=== PATIENT | male | born 1960 | race Caucasian/White ===

== ENCOUNTER 2019-06-07 05:55 | Outpatient (CLI) | payer OTHER ==
[~2019-06-07] VITALS: Ht 177 cm; Wt 84.5 kg
[2019-06-07] MEDS ORDERED: ATOR40TA PO (14:44)
[2019-06-07] MEDS ORDERED: LISI-552 PO (14:44)
[2019-06-07] MEDS ORDERED: OMEP20CA13 PO (14:44)
== END 2019-06-07 15:03 | disposition home or self-care (01) ==
LOC: PREOP 05:55
PROVIDERS: ATTEND Surgery
DX: Z01.818 Encounter for other preprocedural examination (principal)

== ENCOUNTER 2019-08-04 09:04 | Outpatient (CLI) | payer OTHER ==
[~2019-08-04] VITALS: Ht 175 cm; Wt 87.1 kg
[~2019-08-04 09:04] MED LIST: ATOR40TA PO; LISI-552 PO; OMEP20CA13 PO
[2019-08-04 09:15] VITALS: BP 139/93
[2019-08-04 09:52] LABS: BASOPHILS % (AUTO) 0 % (0-10); EOSINOPHILS # (AUTO) 0.3 10^3/uL (0.0-0.3); EOSINOPHILS % (AUTO) 3 % (0-10); HEMATOCRIT 40 % (40-54); HEMOGLOBIN 14.2 G/DL (13.3-17.7); LYMPHOCYTES # (AUTO) 1.9 X 10^3 (1.0-4.0); LYMPHOCYTES % (AUTO) 25 % (12-44); MEAN CORPUSCULAR HEMOGLOBIN 28 PG (25-34); MEAN CORPUSCULAR HGB CONC 35 G/DL (32-36); MEAN CORPUSCULAR VOLUME 79 FL (80-99); MONOCYTES # (AUTO) 0.7 X 10^3 (0.0-1.0); MONOCYTES % (AUTO) 10 % (0-12); NEUTROPHILS # (AUTO) 4.8 X 10^3 (1.8-7.8); NEUTROPHILS % (AUTO) 62 % (42-75); PLATELET COUNT 171 10^3/uL (130-400); RED CELL DISTRIBUTION WIDTH 13.8 % (10.0-14.5); WHITE BLOOD COUNT 7.7 10^3/uL (4.3-11.0)
== END 2019-08-04 13:47 | disposition home or self-care (01) ==
LOC: PREOP 09:04
PROVIDERS: ATTEND Surgery
DX: Z01.812 Encounter for preprocedural laboratory examination (principal); D12.6 Benign neoplasm of colon, unspecified
CPT/HCPCS: 36415; 85025; 86850; 86900; 86901; 87081

== ENCOUNTER 2019-08-11 07:41 | Inpatient (IN) | payer OTHER ==
[~2019-08-11] VITALS: Ht 175 cm; Wt 87.1 kg
[2019-08-11] VITALS (10 sets, daily range): BP systolic 120–172; BP diastolic 73–104
[2019-08-11] MEDS ORDERED: BUP/EPI 0.5% 1:200,000 (SENSORCAINE) 30 ML VIAL ONE (08:15)
[2019-08-11] MEDS: LACTATED RINGERS 1,000 ML IV PRN ×2 (08:17→09:38)
[2019-08-11] MEDS ORDERED: metroNIDAZOLE 500MG/100ML IVPB 100 ML IV ONE (08:30)
[2019-08-11] MEDS ORDERED: ceFAZolin 2 GM/50 ML NS 50 ML IV ONE (08:30)
[2019-08-11] MEDS ORDERED: ONDANSETRON 4 MG/2 ML (SDV) Z0FRAN ONE (08:32)
[2019-08-11] MEDS ORDERED: LIDOCAINE PF 2% 5 ML (XYLOCAINE) VIAL ONE (08:32)
[2019-08-11] MEDS ORDERED: proPOfol 200 MG/20 ML (DIPRIVAN) VIAL IV ONE (08:32)
[2019-08-11] MEDS ORDERED: SEVOFLURANE (ULTANE) 15 ML INHAL SOLN ONE (08:32)
[2019-08-11] MEDS ORDERED: DEXAMETHASONE 10 MG/ML (DECADRON) 1 ML VIAL ONE (08:32)
[2019-08-11] MEDS ORDERED: ROCURONIUM 10 MG/ML 5 ML SYRINGE IV ONE (08:32)
[2019-08-11] MEDS ORDERED: fentaNYL INJECTION 250 MCG/5 ML AMP ONE (08:33)
[2019-08-11] MEDS ORDERED: MIDAZOLAM 2 MG/2 ML (VERSED) VIAL ONE (08:33)
[2019-08-11] MEDS ORDERED: BUPIVACAINE 0.5% 30 ML (SENSORCAINE) VIAL ONE (10:04)
[2019-08-11] MEDS ORDERED: NEOSTIGMINE 3 MG/3 ML VIAL ONE (10:12)
[2019-08-11] MEDS ORDERED: GLYCOPYRROLATE 0.2 MG/ML (ROBINUL) 2 ML VIAL ONE (10:12)
[2019-08-11] MEDS ORDERED: KETOROLAC 30 MG/ML VIAL ONE (10:13)
--- NOTE | 2019-08-11 10:24 | Progress Note-Post Operative ---
Post-Operative Progess Note Surgeon (s)/Cryogenics Repairer (s) Surgeon ALEKSANDR DORAN DO Cryogenics Repairer: Dr. Duncan Pre-Operative Diagnosis tubullovillous adenoma cecal area Post-Operative Diagnosis same Procedure & Operative Findings Date of Procedure 08/11/19 Procedure Performed/Findings lap hand assisted right colon resection Anesthesia Type gen Estimated Blood Loss Estimated blood loss (mL): min Specimens/Packing Specimens Removed right colon ALEKSANDR DORAN DO Aug 11, 2019 10:24
[2019-08-11] MEDS ORDERED: ONDANSETRON 4 MG/2 ML (SDV) Z0FRAN IVP PRN ×2 (10:30→11:00)
[2019-08-11] MEDS ORDERED: morphine INJ 10 MG/ML 1ML (SYR OR VIAL) IVP PRN (10:30)
[2019-08-11] MEDS ORDERED: morphine INJ 10 MG/ML 1ML (SYR OR VIAL) IVP ONE (11:00)
[2019-08-11] MEDS ORDERED: fentaNYL INJECTION 100 MCG/2 ML AMP IVP ONE (11:00)
[2019-08-11] MEDS ORDERED: LABETALOL HCL 20 MG/4 ML VIAL IV PRN (11:00)
[2019-08-11] MEDS ORDERED: morphine INJ 10 MG/ML 1ML (SYR OR VIAL) ONE (11:13)
[2019-08-11] MEDS: LACTATED RINGERS 1,000 ML IV SCH ×2 (12:13→15:30)
[2019-08-11] MEDS ORDERED: CATHETER FLUSH 10 ML SYR IV PRN (12:45)
[2019-08-11] MEDS ORDERED: morphine INJ 4 MG/ML 1 ML (VIAL/SYRINGE) IV PRN (12:45)
[2019-08-11] MEDS ORDERED: ceFAZolin INJECTION 2,000 MG in WATER (STERILE) FOR INJECTION 10 ML IV SCH (14:00)
[2019-08-11] MEDS: ceFAZolin 2 GM/50 ML NS 50 ML IV SCH ×2 (15:34→23:43)
[2019-08-12] VITALS: BP 116/77
[2019-08-12] MEDS: LACTATED RINGERS 1,000 ML IV SCH ×3 (00:52→18:10)
[2019-08-12 04:00] VITALS: BP 113/72
--- NOTE | 2019-08-12 04:48 | OPERATIVE REPORT ---
DATE OF SERVICE: 08/11/2019 PREOPERATIVE DIAGNOSIS: Tubulovillous adenoma of the cecum. POSTOPERATIVE DIAGNOSIS: Tubulovillous adenoma of the cecum. PROCEDURE: Laparoscopic hand-assisted right colon resection with cvbr-gb-[id number] anastomosis. SURGEON: Aleksandr Anders DO WAREHOUSE TRAFFIC SUPERVISOR: Dr. Duncan, assisted in retraction, dissection and closure. ANESTHESIA: General. ESTIMATED BLOOD LOSS: Minimal. COMPLICATIONS: None. INDICATIONS: The patient is a 59-year-old male with a large flat polyp in the cecum, unable to be removed endoscopically. He understands risks and benefits of procedure and wished to proceed with procedure. Consent was signed in the chart. DESCRIPTION OF PROCEDURE: The patient was taken to the operating suite, was prepped and draped in sterile fashion. Surgical pause was performed. Midline incision was made for a hand port. A 12 mm trocar was then placed in the suprapubic region and the subxiphoid region under direct visualization of laparoscope. The right colon was isolated. Using cautery, the colon was mobilized from the white line of Toldt freeing the cecum and right colon. Once adequately free, the colon was brought out through the midline incision and the distal portion of the ileum was then dissected around and KECIA blue stapler was then fired across and the colon was then dissected around distal to where the polyp was and a KECIA blue stapler was then fired across the colon. LigaSure was then used to divide the mesentery from the colon, removing the segment of small bowel and right colon. The small bowel and colon were then brought together and created a [id number] anastomosis. A crotch stitch was placed. The abdomen was then reinspected. No other pathology noted. The midline incision was then closed using 1-0 looped PDS. The abdomen was then insufflated again noting no other pathology and the abdomen was then desufflated. The trocars were removed. The skin was then closed using william. The area was then washed and dried. Sterile bandages were applied. The patient tolerated procedure well without any complications. He was taken to recovery room in stable condition. Job ID: [id number] DocumentID: [id number] Dictated Date: 08/11/2019 21:02:44 Senior Financial Accountant Date: 08/12/2019 04:46:58 Dictated By: ALEKSNADR ANDERS DO
[2019-08-12] MEDS: HYDROcodone/APAP 5 MG/325 MG (LORTAB) TAB PO PRN ×2 (05:06→20:12)
[2019-08-12 05:34] LABS: HEMOGLOBIN 11.4 G/DL (13.3-17.7); MEAN PLATELET VOLUME 9.1 FL (7.4-10.4); RED CELL DISTRIBUTION WIDTH 13.6 % (10.0-14.5); WHITE BLOOD COUNT 11.8 10^3/uL (4.3-11.0)
[2019-08-12 05:51] LABS: BUN/CREATININE RATIO 19; CALCIUM 8.1 MG/DL (8.5-10.1); CARBON DIOXIDE 20 MMOL/L (21-32); CHLORIDE 108 MMOL/L (98-107); CREATININE SERUM 0.75 MG/DL (0.60-1.30); GFR ESTIMATED > 60; GLUCOSE 127 MG/DL (70-105); MAGNESIUM 1.5 MG/DL (1.6-2.4); POTASSIUM 4.3 MMOL/L (3.6-5.0); SODIUM 138 MMOL/L (135-145)
--- NOTE | 2019-08-12 06:43 | Progress Note - Surgery ---
MARGARET DIOR,MED STUDENT 08/12/19 0643: Subjective Date Seen by a Provider: Aug 12, 2019 Time Seen by a Provider: 06:31 Subjective/Events-last exam Patient seen and examined. Patient says that he currently does not have any pain since his pain meds were started and that is pain before pain meds were started was 3/10. He says that he has been up and walking around and has been doing his IS but has not had any flatus or BM yet. He still has his pretty catheter in and was wondering when he can give it out. Review of Systems General: No Chills; Appetite HEENT: No Head Aches; Dysphasia; No Sore Throat Pulmonary: No Dyspnea, No Cough Cardiovascular: No: Chest Pain, Palpitations Gastrointestinal: No: Nausea, Vomiting, Abdominal Pain, Diarrhea Neurological: No: Weakness, Numbness Objective Exam Vital Signs Date Time Temp Pulse Resp B/P (MAP) Pulse Ox O2 Delivery O2 Flow Rate FiO2 08/12/19 04:00 36.6 73 18 113/72 (86) 97 Nasal Cannula 2.00 08/12/19 00:00 36.8 86 18 116/77 (90) 96 Room Air 08/11/19 21:00 Nasal Cannula 2.00 08/11/19 20:00 37.2 101 20 120/73 (89) 95 Room Air 08/11/19 16:00 36.7 90 20 133/83 (100) 95 Nasal Cannula 2.00 08/11/19 13:55 Nasal Cannula 3.00 08/11/19 11:45 36.5 77 20 144/87 (106) 93 Nasal Cannula 3.00 08/11/19 11:45 95 Nasal Cannula 3.00 08/11/19 11:45 36.5 77 20 144/87 93 Nasal Cannula 3.00 08/11/19 11:45 36.5 77 20 144/82 93 Nasal Cannula 3.00 08/11/19 11:45 OxyMask 3 08/11/19 11:45 36.5 20 149/89 (109) 94 Nasal Cannula 3 08/11/19 11:30 OxyMask 3 08/11/19 11:30 20 137/92 (107) 95 Nasal Cannula 3 08/11/19 11:20 20 151/90 (110) 94 Nasal Cannula 3 08/11/19 11:15 OxyMask 4 08/11/19 11:10 20 166/96 (119) 96 OxyMask 5 08/11/19 11:00 20 166/96 (119) 97 OxyMask 10 08/11/19 11:00 OxyMask 10 08/11/19 10:50 20 163/96 (118) 98 OxyMask 10 08/11/19 10:45 OxyMask 10 08/11/19 10:40 OxyMask 10 08/11/19 10:40 36.5 20 172/104 (126) 99 OxyMask 10 08/11/19 07:45 36.5 76 16 137/94 (108) 91 Room Air I & O 08/12/19 07:00 Intake Total 4550 ml Output Total 1860 ml Balance 2690 ml Capillary Refill : Less Than 3 Seconds General Appearance: No Apparent Distress, WD/WN HEENT: PERRL/EOMI Respiratory: Chest Non Tender, Lungs Clear, Normal Breath Sounds, No Accessory Muscle Use, No Respiratory Distress Cardiovascular: Regular Rate, Rhythm, No Edema, Normal Peripheral Pulses Gastrointestinal: non tender, soft, no organomegaly, no pulsatile mass Extremity: No Calf Tenderness, No Pedal Edema Neurologic/Psychiatric: Alert, Oriented x3, Normal Mood/Affect Skin: Normal Color, Warm/Dry Results Lab Laboratory Tests 08/12/19 04:55: White Blood Count 11.8H, Red Blood Count 4.07L, Hemoglobin 11.4L, Hematocrit 33L , Mean Corpuscular Volume 80, Mean Corpuscular Hemoglobin 28, Mean Corpuscular Hemoglobin Concent 35, Red Cell Distribution Width 13.6, Platelet Count 183, Mean Platelet Volume 9.1, Sodium Level 138, Potassium Level 4.3, Chloride Level 108H, Carbon Dioxide Level 20L, Anion Gap 10, Blood Urea Nitrogen 14, Creatinine 0.75, Estimat Glomerular Filtration Rate > 60, BUN/Creatinine Ratio 19, Glucose Level 127H, Calcium Level 8.1L, Magnesium Level 1.5L Assessment/Plan Assessment/Plan Assessment/Plan Post-op colon resection Clear liquid diet remove pretty catheter monitor incision for signs of infection and change bandage Q6h restart lisinopril ALEKSANDR DORAN DO 08/12/19 2004: Subjective Subjective/Events-last exam Pain controlled. Tolerating liquids. No nausea or emesis. Not passing flatus or bm yet. Pretty removed. Using incentive spirometer. Denies n/v fever sweats chills shortness of breath or chest pain. Objective Exam General Appearance: No Apparent Distress HEENT: PERRL/EOMI Respiratory: Chest Non Tender, No Accessory Muscle Use, No Respiratory Distress Cardiovascular: Regular Rate, Rhythm, Normal Peripheral Pulses Gastrointestinal: non tender, soft, no organomegaly, other (incisions c/d/i) Extremity: No Calf Tenderness Neurologic/Psychiatric: Alert, Oriented x3, Normal Mood/Affect Skin: Normal Color Lymphatic: No Adenopathy Assessment/Plan Assessment/Plan Assessment/Plan s/p lap hand assisted right colon resection for tubovillous adenoma cecum hypomagnesemia replace mag clear liquids await bowel function IS repeat labs in am Supervisory-Addendum Brief Verification & Attestation Participated in pt care: history, MDM, physical Personally performed: exam, history, MDM, supervision of care Care discussed with: Medical Student Procedures: n/a Results interpretation: Verified all documentation Verification and Attestation of Medical Student E/M Service A medical student performed and documented this service in my presence. I reviewed and verified all information documented by the medical student and made modifications to such information, when appropriate. I personally performed the physical exam and medical decision making. Aleksandr Doran, Aug 12, 2019,20:04 MARGARET DIOR,MED STUDENT Aug 12, 2019 06:43 ALEKSANDR DORAN DO Aug 12, 2019 20:04
[2019-08-12] MEDS ORDERED: MAGNESIUM 1 GM/100 ML IVPB 100 ML IV NR (07:30)
[2019-08-12 07:33] VITALS: BP 140/84
--- NOTE | 2019-08-12 09:13 | Consultation ---
History of Present Illness History of Present Illness Patient Consulted On(glenn/time) 08/12/19 09:04 Date Seen by Provider: Aug 12, 2019 Time Seen by Provider: 09:04 Reason for Visit: TUBULOVILLOUS ADENOMA OF CECUM History of Present Illness PT IS A 59 Y/O MALE WHO IS KNOWN TO ME FROM CLINIC. HE PRESENTED TO THE HOSPITAL FOR PLANNED REMOVAL OF THE TUBULOVILLOUS ADENOMA OF THE CECUM VIA LAPAROSCOPIC REMOVAL WITH DR. DORAN SURGEON. Allergies and Home Medications Allergies Coded Allergies: No Known Drug Allergies (Unverified , 06/07/19) Home Medications Atorvastatin Calcium 40 Mg Tablet, 40 MG PO DAILY, (Reported) Lisinopril 20 Mg Tablet, 20 MG PO DAILY, (Reported) Omeprazole 20 Mg Capsule.dr, 20 MG PO DAILY, (Reported) Patient Home Medication List Home Medication List Reviewed: Yes Past Qjazvqa-Mevgii-Ogdmnk Hx Past Med/Social Hx: Reviewed Nursing Past Med/Soc Hx Patient Social History Alcohol Use: Rarely Uses Recreational Drug Use: No Smoking Status: Former Smoker Former Smoker, Quit: Aug 04, 1999 2nd Hand Smoke Exposure: Yes Recent Foreign Travel: No Contact w/Someone Who Travel: No Recent Infectious Disease Expo: No Recent Hopitalizations: No Physical Abuse: No Sexual Abuse: No Mistreated: No Fear: No Immunizations Up To Date Date of Influenza Vaccine: Apr 11, 2020 Seasonal Allergies Seasonal Allergies: No Past Medical History Surgeries: Yes (URETER SURGERY, DENTAL) Respiratory: No Currently Using CPAP: No Currently Using BIPAP: No Cardiac: Yes High Cholesterol, Hypertension Neurological: No Reproductive Disorders: No Sexually Transmitted Disease: No HIV/AIDS: No Genitourinary: Yes Kidney Stones Gastrointestinal: Yes Gastroesophageal Reflux Musculoskeletal: No Endocrine: No HEENT: Yes (GLASSES, DENTURES) Loss of Vision: Denies Hearing Impairment: Denies Cancer: No Psychosocial: No Integumentary: No Blood Disorders: No Adverse Reaction/Blood Tranf: No (N/A) Family Medical History Reviewed Nursing Family Hx Hypertension Review of Systems-General Constitutional: No chills, No fever, No malaise, No weakness EENTM: No hoarseness, No throat pain Respiratory: No cough, No dyspnea on exertion, No short of breath Cardiovascular: No chest pain, No edema Gastrointestinal: abdominal pain, other (NO FLATULENCE) Genitourinary: no symptoms reported Musculoskeletal: no symptoms reported Skin: no symptoms reported; No lesions, No rash Psychiatric/Neurological: Denies Anxiety, Denies Depressed All Other Systems Reviewed Negative Unless Noted: Yes Physical Exam-General Problems Physical Exam Vital Signs Vital Signs - First Documented 08/11/19 07:45 Temp 36.5 Pulse 76 Resp 16 B/P (MAP) 137/94 (108) Pulse Ox 91 O2 Delivery Room Air Capillary Refill : Less Than 3 Seconds General Appearance: WD/WN, no apparent distress Eyes: Bilateral Eye Normal Inspection, Bilateral Eye PERRL, Bilateral Eye EOMI HEENT: PERRL/EOMI, pharynx normal Neck: non-tender, full range of motion, supple, normal inspection Respiratory: chest non-tender, lungs clear, normal breath sounds, no respiratory distress, other (OXYGEN VIA NASAL CANNULA) Cardiovascular: regular rate, rhythm, no edema Gastrointestinal: soft, abnormal bowel sounds (DECREASED IN UPPER, FAINT BOWEL SOUNDS IN RIGHT AND LEFT LOWER QUADRANT), other (SURGICAL SITE WITH DRESSING IN PLACE - SMALL AMOUNT OF BLOOD ON DRESSING) Rectal: deferred Genital/Rectal: other (HEATH IN PLACE) Back: normal inspection, no CVA tenderness, no vertebral tenderness Extremities: normal range of motion, non-tender, normal inspection, no pedal edema, no calf tenderness, normal capillary refill Neurologic/Psychiatric: tire mounter II-XII nml as tested, no motor/sensory deficits, alert, normal mood/affect, oriented x 3 Skin: normal color, warm/dry Lymphatic: no adenopathy Assessment/Plan Assessment/Plan Admission Diagnosis/Plan TUBULOVILLOUS ADENOMA OF THE CECUM HYPERTENSION HYPERLIPIDEMIA TUBULOVILLOUS ADENOMA OF THE CECUM - STATUS POST LAPAROSCOPIC REMOVAL WITH HAND ASSIST - SPECIMEN TO PATHOLOGY HYPERTENSION - RESTARTED LISINOPRIL, MONITOR BLOOD PRESSURES, WILL GIVE A SMALL DOSE OF NORVASC TODAY. HYPERLIPIDEMIA - RESTARTED LIPITOR HEATH TO BE REMOVED TODAY - ORDER GIVEN TO NURSE AND PLACED IN COMPUTER OXYGEN TO BE REMOVED WELL TODAY. ANTICIPATE PT TO BE DISCHARGED THURSDAY OR THURSDAY DEPENDING ON BOWEL FUNCTION RECOVERY Admission Status: Inpatient Order (span 2 midnights) Reason for Inpatient Admission: COLON MASS IN NEED OF RESECTION MIRNA TOPETE MD Aug 12, 2019 09:13
--- NOTE | 2019-08-12 09:24 | Physical Therapy Progress Note ---
Therapy Progress Note Observed patient walking IND pushing own IV pole in hallway with assistant chief nursing officer. Patient states he has been up and moving since surgery yesterday. Therefore skilled PT services are not required. MISBAH WHEELER PT Aug 12, 2019 09:24
--- NOTE | 2019-08-12 10:25 | Anesthesia-General Post-Op ---
General Patient Condition Mental Status/LOC: Same as Preop Cardiovascular: Satisfactory Nausea/Vomiting: Absent Respiratory: Satisfactory Pain: Controlled Complications: Absent Post Op Complications Complications None Follow Up Care/Instructions Patient Instructions None needed. Anesthesia/Patient Condition Patient Condition Patient is doing well, no complaints, stable vital signs, no apparent adverse anesthesia problems. No complications reported per nursing. EDWARD GREEN CRNA Aug 12, 2019 10:25
[2019-08-12 11:52] VITALS: BP 127/77
--- NOTE | 2019-08-12 15:03 | NUR ---
NOTE THIS RN CALLED DR DORAN ABOUT BRIGHT RED BM -- DR DORAN VOICED THIS WAS NORMAL AND WITH EACH BM BLOOD WILL SUBSIDE -- ADVISED PT
[2019-08-12 16:13] VITALS: BP 139/80
[2019-08-12 20:20] VITALS: BP 164/85
[2019-08-13] VITALS (7 sets, daily range): BP systolic 126–176; BP diastolic 72–94
[2019-08-13] MEDS: LACTATED RINGERS 1,000 ML IV SCH ×3 (02:14→18:06)
[2019-08-13] MEDS: HYDROcodone/APAP 5 MG/325 MG (LORTAB) TAB PO PRN ×2 (02:17→06:40)
[2019-08-13 06:10] LABS: MEAN PLATELET VOLUME 8.3 FL (7.4-10.4); RED CELL DISTRIBUTION WIDTH 13.5 % (10.0-14.5); WHITE BLOOD COUNT 7.7 10^3/uL (4.3-11.0)
[2019-08-13 06:36] LABS: BUN/CREATININE RATIO 21; CALCIUM 8.1 MG/DL (8.5-10.1); CARBON DIOXIDE 22 MMOL/L (21-32); CHLORIDE 108 MMOL/L (98-107); CREATININE SERUM 0.76 MG/DL (0.60-1.30); GFR ESTIMATED > 60; GLUCOSE 93 MG/DL (70-105); MAGNESIUM 1.6 MG/DL (1.6-2.4); POTASSIUM 3.9 MMOL/L (3.6-5.0); SODIUM 139 MMOL/L (135-145)
--- NOTE | 2019-08-13 10:26 | NUR ---
PT CONTINUES TO HAVE BLOODY STOOL. PT DENIES ANY NEEDS. UP IN CHAIR USING IS ROUTINELY.
--- NOTE | 2019-08-13 16:59 | Progress Note - Surgery ---
YVAN CHEEK,MED STUDENT 08/13/19 1659: Subjective Date Seen by a Provider: Aug 13, 2019 Time Seen by a Provider: 15:54 Subjective/Events-last exam Patient seen and examined this afternoon. He is resting comfortably in his chair during exam. States he is doing well and has been having bowel movements with some blood in them. Review of Systems General: No Chills Pulmonary: No Dyspnea, No Cough Cardiovascular: No: Chest Pain Gastrointestinal: No: Nausea, Vomiting Neurological: No: Weakness Objective Exam Vital Signs Date Time Temp Pulse Resp B/P (MAP) Pulse Ox O2 Delivery O2 Flow Rate FiO2 08/13/19 11:29 36.5 75 20 143/94 (110) 94 Room Air 08/13/19 09:29 Room Air 08/13/19 07:55 36.0 68 18 152/85 (107) 94 Room Air 08/13/19 04:30 36.4 65 19 126/72 (90) 92 Room Air 08/13/19 00:40 36.6 67 18 132/72 (92) 92 Room Air 08/12/19 20:20 37.2 83 20 164/85 (111) 95 Room Air 08/12/19 20:15 Room Air I & O 08/13/19 07:00 Intake Total 5410 ml Output Total 1300 ml Balance 4110 ml Capillary Refill : Less Than 3 Seconds General Appearance: No Apparent Distress HEENT: PERRL/EOMI Respiratory: No Accessory Muscle Use, No Respiratory Distress Cardiovascular: Regular Rate, Rhythm Gastrointestinal: non tender, soft, other (incisions look good, minimal drainage, no erythema) Neurologic/Psychiatric: Alert, Oriented x3, Normal Mood/Affect Skin: Normal Color, Warm/Dry Results Lab Laboratory Tests 08/13/19 06:00: White Blood Count 7.7, Red Blood Count 3.51L, Hemoglobin 10.0L, Hematocrit 29L, Mean Corpuscular Volume 82, Mean Corpuscular Hemoglobin 29, Mean Corpuscular Hemoglobin Concent 35, Red Cell Distribution Width 13.5, Platelet Count 145, Mean Platelet Volume 8.3, Sodium Level 139, Potassium Level 3.9, Chloride Level 108H, Carbon Dioxide Level 22, Anion Gap 9, Blood Urea Nitrogen 16, Creatinine 0.76, Estimat Glomerular Filtration Rate > 60, BUN/Creatinine Ratio 21, Glucose Level 93, Calcium Level 8.1L, Magnesium Level 1.6 Assessment/Plan Assessment/Plan Assessment/Plan Assessment: -right colon resection, post-op day 2 Plan: Patient feeling well. Some blood in stool is normal at this point. Continue on soft food diet NELSON DUNCAN DO 08/13/19 1725: Subjective Time Seen by a Provider: 15:54 Subjective/Events-last exam Pt has only minimal abdominal pain. Objective Exam General Appearance: No Apparent Distress, WD/WN Respiratory: Lungs Clear, Normal Breath Sounds Gastrointestinal: soft; No distended; other (incisions c/d/i, but pt states minimal drainage from midline, no erythema) Assessment/Plan Assessment/Plan Assessment/Plan Increase ambulation and IS use. Will increase to soft diet. Supervisory-Addendum Brief Verification & Attestation Participated in pt care: history, MDM, physical Personally performed: exam, history, MDM Care discussed with: Medical Student Procedures: n/a Verification and Attestation of Medical Student E/M Service A medical student performed and documented this service in my presence. I reviewed and verified all information documented by the medical student and made modifications to such information, when appropriate. I personally performed the physical exam and medical decision making. Nelson Duncan, Aug 13, 2019,17:25 YVAN CHEEK,MED STUDENT Aug 13, 2019 16:59 NELSON DUNCAN DO Aug 13, 2019 17:25
[2019-08-14] VITALS: BP 179/93
[2019-08-14 01:30] VITALS: BP 160/80
[2019-08-14] MEDS: LACTATED RINGERS 1,000 ML IV SCH ×2 (02:13→10:09)
[2019-08-14 04:31] VITALS: BP 176/81
[2019-08-14 06:39] VITALS: BP 156/82
[2019-08-14 08:00] VITALS: BP 142/90
[2019-08-14 11:42] VITALS: BP 151/83
--- NOTE | 2019-08-14 12:13 | Progress Note - Surgery ---
YVAN CHEEK,MED STUDENT 08/14/19 1213: Subjective Date Seen by a Provider: Aug 14, 2019 Time Seen by a Provider: 11:21 Subjective/Events-last exam Patient seen and examined this morning. States he had some heartburn after his first soft meal last night, but none after breakfast this morning. Had a bowel movement last night with some blood in it. No other complaints Review of Systems General: No Chills, No Fatigue Pulmonary: No Dyspnea, No Cough Cardiovascular: No: Chest Pain, Palpitations Gastrointestinal: Hematochezia; No: Nausea, Vomiting, Abdominal Pain Objective Exam Vital Signs Date Time Temp Pulse Resp B/P (MAP) Pulse Ox O2 Delivery O2 Flow Rate FiO2 08/14/19 11:42 37.0 73 18 151/83 (105) 98 Room Air 08/14/19 09:14 Room Air 08/14/19 08:00 36.6 74 16 142/90 (107) 93 Room Air 08/14/19 06:39 81 156/82 (106) 08/14/19 04:31 37.6 82 16 176/81 (112) 92 Room Air 08/14/19 01:30 160/80 (106) 08/14/19 00:00 37.2 85 20 179/93 (121) 98 Room Air 08/13/19 20:32 168/80 (109) 08/13/19 20:00 37.2 93 18 176/94 (121) 93 Room Air 08/13/19 19:45 Room Air 08/13/19 16:00 36.9 76 18 145/78 (100) 94 Room Air I & O 08/14/19 07:00 Intake Total 5216 ml Balance 5216 ml Capillary Refill : Less Than 3 Seconds General Appearance: No Apparent Distress, WD/WN HEENT: PERRL/EOMI; No Scleral Icterus (L), No Scleral Icterus (R) Neck: Non Tender; No Lymphadenopathy (L), No Lymphadenopathy (R) Respiratory: Lungs Clear, Normal Breath Sounds Cardiovascular: Regular Rate, Rhythm, No Murmur Peripheral Pulses: 2+ Dorsalis Pedis (R), 2+ Left Dors-Pedis (L), 2+ Radial Pul ses (R), 2+ Radial Pulses (L) Gastrointestinal: soft; No distended, No tenderness; other (incisions nonery thematous, no drainage) Neurologic/Psychiatric: Alert, Oriented x3, Normal Mood/Affect Skin: Normal Color, Warm/Dry Assessment/Plan Assessment/Plan Assessment/Plan Assessment: -right colon resection, post-op day 3 Plan: patient doing well, to be discharged this afternoon. NELSON DUNCAN DO 08/14/19 1318: Subjective Time Seen by a Provider: 12:37 Subjective/Events-last exam Pt seen and examined, tolerating diet and pain controlled. He would like to go home. Objective Exam Gastrointestinal: other (incisions nonerythematous, no drainage) Assessment/Plan Assessment/Plan Assessment/Plan D/C IV, D/C home Supervisory-Addendum Brief Verification & Attestation Participated in pt care: history, MDM, physical Personally performed: exam, history, MDM Care discussed with: Medical Student Procedures: n/a Verification and Attestation of Medical Student E/M Service A medical student performed and documented this service in my presence. I reviewed and verified all information documented by the medical student and made modifications to such information, when appropriate. I personally performed the physical exam and medical decision making. Nelson Duncan, Aug 14, 2019,13:18 YVAN CHEEK,MED STUDENT Aug 14, 2019 12:13 NELSON DUNCAN DO Aug 14, 2019 13:18
[2019-08-14] MEDS ORDERED: ACHD5005 PO ×2 (13:11)
--- NOTE | 2019-08-14 13:12 | Discharge Inst-Surgical ---
Discharge Inst-Surgical Depart Medication/Instructions New, Converted or Re-Newed RX: RX Given to Pt/Family Patient Instructions Follow up Appt: Make appointment for 1 week. [phone] Instructions: No lifting greater than 20 pounds. No strenuous activity. May shower in 24 hours, no tub bath or soaking. Use incentive spirometer at home as directed. No Smoking Skin/Wound Care: May remove bandages in am. You need to leave the Dermabond on incision it will fall off on it's own. Symptoms to Report: Appetite Changes, Extremity Discoloration, Numbness/Tingling, Swelling Increased, Bleeding Excessive, Eyesight Changes, Pain Increased, Urine Color Change, Constipation(Persistent), Fever over 101 degree F, Pain/Pressure in chest, Urinating Difficulty, Cough Up/Vomit Blood, Heart Beat Irreg/Pounding, Pain/Pressure in jaw, Cramps in feet or legs, Lightheadedness, Pain/Pressure in shoulder, Diarrhea(Persistent), Memory Changes Suddenly, Questions/Concerns, Weight gain consecutive days, Dizziness/Fainting, Nausea/Vomiting, Shortness of Breath, Weight gain over 2 pounds If questions or concerns contact your physician Or seek help at emergency department. Activity Activity as Tolerated: Yes Activity Instructions: Avoid Stress to Incision Driving Instructions: No Driving/Refer to Dr. Boyd Discharge Diet: No Restrictions (increase fluids) Diet After 24 Hours: Clear Liquid if Nauseous If Any Problems/Questions/Issu: Contact Your Physician, Go to Emergency Room Skin/Wound Care Infection Signs and Symptoms: Increased Redness, Foul Odor of Wound, Increased Drainage, Skin Itchy or Has a Rash, Increased Swelling, Temperature Above 101 F Bathing Instructions: Shower Operative Area Clean and Dry: Keep Incision Clean/Dry Stitches/Tuan/Dermabond Dis: Care of DEEPIKA Nicolas DO Aug 14, 2019 13:12
== END 2019-08-14 14:15 | disposition home or self-care (01) | DRG 331 ==
LOC: 4TH 07:41 → SURG 07:42 → 4TH 11:39
PROVIDERS: ADMIT Surgery; ATTEND Surgery
PROC: 0DTF0ZZ Resection of Right Large Intestine, Open Approach (ICD-10-PCS; principal; 2019-08-11 08:58)
DX: D12.0 Benign neoplasm of cecum (principal); Z87.891 Personal history of nicotine dependence; E78.5 Hyperlipidemia, unspecified; I10 Essential (primary) hypertension; K21.9 Gastro-esophageal reflux disease without esophagitis; E83.42 Hypomagnesemia
CPT/HCPCS: 36415; 80048; 83735; 85027; 86850; 86900; 86901; 88309; 94664

== ENCOUNTER → 2021-08-22 | Outpatient (CLI) | payer OTHER ==
[~2021-08-22] MED LIST changes: +ACHD5005 PO; -LISI-552 PO; +LISI20TA26 PO; -OMEP20CA13 PO; +OMEP20CA18 PO
== END ==
LOC: LABNPT 08:00
PROVIDERS: ATTEND Family Medicine
DX: Z53.9 Procedure and treatment not carried out, unspecified reason (principal)